=== PATIENT | male | born 1960 | race African-American/Black ===

== ENCOUNTER 2020-10-30 08:50 | Emergency (ER) | payer MEDICARE ==
[~2020-10-30] VITALS: Ht 172.7 cm; Wt 105.1 kg
[2020-10-30] MEDS ORDERED: ONDANSETRON PF 4 MG/2 ML VIAL. IVP ONE (09:15)
[2020-10-30] MEDS ORDERED: diphenhydrAMINE 50 MG/ML VIAL IVP ONE (09:15)
[2020-10-30] MEDS ORDERED: HYDROmorphone PF 1 MG/ML DISP.SYRIN IVP ONE ×2 (09:15→11:30)
--- NOTE | 2020-10-30 09:18 | PHYS DOC ---
General Adult EDM: Chief Complaint: LOWER EXTREMITY SWELLING HPI: HPI: 59-year-old male presents with right lower extremity swelling and pain. The patient has sickle cell. He normally is managed well at home. He does not use narcotics at home. For the last 2 days, the patient has had increased swelling in the right leg and generalized pain more in that leg than the left. The pain is similar to his previous crisis, but he has never had the unilateral swelling of the leg. He denies change in sensation. He is not having any abdominal or chest pain. He has an allergy to codeine and morphine that makes him itch. He has no other complaints at this time. Review of Systems: Review of Systems: Constitutional: Denies fever or chills Eyes: Denies change in visual acuity HENT: Denies nasal congestion or sore throat Respiratory: Denies cough or shortness of breath Cardiovascular: Denies chest pain or edema GI: Denies abdominal pain, nausea, vomiting, bloody stools or diarrhea : Denies dysuria Musculoskeletal: Right lower extremity pain and swelling Integument: Denies rash Neurologic: Denies headache, focal weakness or sensory changes Endocrine: Denies polyuria or polydipsia Lymphatic: Denies swollen glands Psychiatric: Denies depression or anxiety Allergies: Allergies: Allergies Coded Allergies Type Severity Reaction Last Updated Verified acetaminophen Allergy Unknown 10/30/20 Yes hydrocodone Allergy Unknown 10/30/20 Yes morphine Allergy Unknown 10/30/20 Yes Uncoded Allergies Type Severity Reaction Last Updated Verified CODINE Allergy Unknown 10/30/20 Physical Exam: PE: Constitutional: Well developed, well nourished, no acute distress, non-toxic appearance. [] HENT: Normocephalic, atraumatic, bilateral external ears normal, oropharynx moist, no oral exudates, nose normal. [] Eyes: PERRLA, EOMI, conjunctiva normal, no discharge. [] Neck: Normal range of motion, no tenderness, supple, no stridor. [] Cardiovascular: Heart rate regular rhythm, no murmur [] Lungs & Thorax: Bilateral breath sounds clear to auscultation [] Abdomen: Bowel sounds normal, soft, no tenderness, no masses, no pulsatile masses. [] Skin: Warm, dry, no erythema, no rash. [] Back: No tenderness, no CVA tenderness. [] Extremities: No tenderness, no cyanosis, no clubbing, ROM intact. Right lower leg swollen compared to left without pitting edema. [] Neurologic: Alert and oriented X 3, normal motor function, normal sensory fu nction, no focal deficits noted. [] Psychologic: Affect normal, judgement normal, mood normal. [] EKG: EKG: [] Radiology/Procedures: Radiology/Procedures: [] Impressions: Right lower extremity venous Doppler dated 10/30/2020 11:35 AM COMPARISON: none. CLINICAL INDICATION: Leg swelling Reason: swelling, sickle cell / Spl. Instructions: / History: FINDINGS: Grayscale, color-flow and spectral waveform analysis performed to include the deep venous system of right lower extremity. There is normal compressibility, phasicity and augmentation of flow throughout. No filling defects are seen. IMPRESSION: No evidence of right lower extremity deep vein thrombosis. Electronically signed by: Jose R Alcantara MD (10/30/2020 11:35 AM) [id number] DICTATED AND SIGNED BY: JOSE R ALCANTARA MD DATE: 10/30/20 1135 CC: RORY GOMEZ DO; CARY POWERS MD ~MTH0 0 Heart Score: C/O Chest Pain: N/A Risk Factors: Risk Factors: DM, Current or recent (<one month) smoker, HTN, HLP, family history of CAD, obesity. Risk Scores: Score 0 - 3: 2.5% MACE over next 6 weeks - Discharge Home Score 4 - 6: 20.3% MACE over next 6 weeks - Admit for Clinical Observation Score 7 - 10: 72.7% MACE over next 6 weeks - Early Invasive Strategies Course & Med Decision Making: Course & Med Decision Making Pertinent Labs and Imaging studies reviewed. (See chart for details) For his pain, I have given the patient two 1 mg doses of Dilaudid. He did not need the second dose until after his ultrasound. His ultrasound is negative for DVT. His labs are abnormal with a hemoglobin of 8.3, hematocrit 23, MCV 132. See labs for more details. Patient states that he is feeling better. He does not usually get admitted for his sickle cell. He is unsure what his typical hemoglobin is. He would like to try to go home. I will discharge him with Percocet. I did warn the patient that his hemoglobin could continue to drop and that if he develops symptoms such as dizziness, shortness of breath, syncope that he would need to come back to the hospital. He states verbal understanding. He is stable for discharge at this time. [] Arnie Disclaimer: Arnie Disclaimer: This electronic medical record was generated, in whole or in part, using a voice recognition dictation system. Departure Departure: Impression: Primary Impression: Sickle cell anemia with pain Disposition: HOME / SELF CARE / HOMELESS Condition: STABLE Referrals: CARY POWERS MD (PCP) Patient Instructions: Sickle Cell Pain Crisis, Sids-di-Apxj Scripts Oxycodone HCl/Acetaminophen (Percocet 5-325 mg Tablet) 1 Each Tablet 1 TAB PO PRN QID PRN for PAIN MDD 4 Tablet(s) for 5 Days, #20 TAB 0 Refills Prov: RORY GOMEZ DO 10/30/20 RORY GOMEZ DO Oct 30, 2020 09:18
[2020-10-30] MEDS ORDERED: IV NORMAL SALINE 1,000ML 1,000 ML IV ONE (09:30)
[2020-10-30 10:08] LABS: BASO % 0 % (0-3); EOS # 0.1 x10^3/uL (0.0-0.7); EOS % 3 % (0-3); HEMATOCRIT 23.8 % (39.0-53.0); HEMOGLOBIN 8.3 g/dL (13.0-17.5); LYMPH # 1.5 x10^3/uL (1.0-4.8); LYMPH % 41 % (24-48); MEAN CORPUSCULAR HEMOGLOBIN 46 pg (25-35); MEAN CORPUSCULAR HGB CONC 35 g/dL (31-37); MEAN CORPUSCULAR VOLUME 132 fL (79-100); MONO # 0.3 x10^3/uL (0.0-1.1); MONO % 8 % (0-9); NEUT # 1.8 x10^3uL (1.8-7.7); NEUT % 49 % (31-73); PLATELET COUNT 396 x10^3/uL (140-400); RED BLOOD COUNT 1.81 x10^6/uL (4.30-5.70); RED CELL DISTRIBUTION WIDTH 17.3 % (11.5-14.5); WHITE BLOOD COUNT 3.7 x10^3/uL (4.0-11.0)
[2020-10-30 10:20] LABS: CALCIUM 8.2 mg/dL (8.5-10.1); CREATININE 1.2 mg/dL (0.7-1.3); GFR 75.5; POTASSIUM 4.1 mmol/L (3.5-5.1)
[2020-10-30 10:22] LABS: ALBUMIN 3.6 g/dL (3.4-5.0); ALBUMIN/GLOBULIN RATIO 0.9 (1.0-1.7); TOTAL BILIRUBIN 0.4 mg/dL (0.2-1.0); TOTAL PROTEIN 7.4 g/dL (6.4-8.2)
--- NOTE | 2020-10-30 11:38 | RAD ---
Right lower extremity venous Doppler dated 10/30/2020 11:35 AM COMPARISON: none. CLINICAL INDICATION: Leg swelling Reason: swelling, sickle cell / Spl. Instructions: / History: FINDINGS: Grayscale, color-flow and spectral waveform analysis performed to include the deep venous system of r ight lower extremity. There is normal compressibility, phasicity and augmentation of flow throughout. No filling defects are seen. IMPRESSION: No evidence of right lower extremity deep vein thrombosis. Electronically signed by: Jose R Alcantara MD (10/30/2020 11:35 AM) [id number]
[2020-10-30 11:58] VITALS: BP 149/90
[2020-10-30 12:00] LABS: % EOS 1 % (0-5); % LYMPHS 52 % (24-48); % MONOS 6 % (0-10); % SEGS 41 % (35-66); NUCLEATED RBC 50
[2020-10-30 12:03] LABS: PLT ESTIMATE ADEQUATE (ADEQUATE); POLYCHROMASIA SLIGHT
[2020-10-30 12:04] LABS: ANISOCYTOSIS SLIGHT; POIKILOCYTOSIS PRESENT
[2020-10-30] MEDS ORDERED: OXYC-325 PO (12:18)
== END 2020-10-30 12:27 | disposition home or self-care (01) ==
LOC: ER 08:50
DX: D57.00 Hb-SS disease with crisis, unspecified (principal); M79.604 Pain in right leg; R22.41 Localized swelling, mass and lump, right lower limb; Z88.5 Allergy status to narcotic agent; Z88.8 Allergy status to other drugs, medicaments and biological substances
CPT/HCPCS: 36415; 80053; 85007; 85025; 93971; 96361; 96374; 96375; 99284; J1170; J1200; J2405; J7030

== ENCOUNTER 2020-11-01 14:54 | Emergency (ER) | payer MEDICARE ==
[~2020-11-01] VITALS: Ht 172.7 cm; Wt 105.1 kg
[~2020-11-01 14:54] MED LIST: OXYC-325 PO
[2020-11-01 15:20] LABS: BASO % 0 % (0-3); EOS # 0.1 x10^3/uL (0.0-0.7); EOS % 2 % (0-3); HEMATOCRIT 23.6 % (39.0-53.0); HEMOGLOBIN 8.3 g/dL (13.0-17.5); LYMPH # 1.3 x10^3/uL (1.0-4.8); LYMPH % 33 % (24-48); MEAN CORPUSCULAR HEMOGLOBIN 46 pg (25-35); MEAN CORPUSCULAR HGB CONC 35 g/dL (31-37); MEAN CORPUSCULAR VOLUME 132 fL (79-100); MONO # 0.3 x10^3/uL (0.0-1.1); MONO % 9 % (0-9); NEUT # 2.2 x10^3uL (1.8-7.7); NEUT % 56 % (31-73); PLATELET COUNT 337 x10^3/uL (140-400); RED BLOOD COUNT 1.78 x10^6/uL (4.30-5.70); RED CELL DISTRIBUTION WIDTH 17.7 % (11.5-14.5); WHITE BLOOD COUNT 3.9 x10^3/uL (4.0-11.0)
[2020-11-01 15:26] LABS: CALCIUM 9.2 mg/dL (8.5-10.1); CREATININE 1.2 mg/dL (0.7-1.3); GFR 75.5; POTASSIUM 3.9 mmol/L (3.5-5.1)
--- NOTE | 2020-11-01 15:29 | PHYS DOC ---
Past History Additional Past Medical Histor: sickle cell Past Surgical History: No Surgical History Alcohol Use: None General Adult EDM: Chief Complaint: UPPER EXTREMITY PAIN HPI: HPI: Patient is a 59-year-old male who presents to the ER today from Dr. Abelardo Lipscomb's office who is his primary care provider. Patient was sent to rule out bone infarcts. Patient is complaining of swelling to his right arm and right leg with increased pain. Patient was seen in this ER 2 days prior for same complaint. He had blood work and an ultrasound performed of his right leg. He was negative for DVT at that time and was discharged home with Percocet for pain control. Patient rates pain 10 out of 10 and has not taken anything at home for pain, he describes the pain as a constant pain and it radiates up his entire leg and his entire arm. He reports being able to bear weight and ambulate with the assistance of a cane. Patient denies shortness of breath, chest pain, fevers, dizziness, abdominal pain. Review of Systems: Review of Systems: 14 body systems of the review of systems have been reviewed. See HPI for pertinent positive and negative responses, otherwise all other systems are negative, nonpertinent or noncontributory Current Medications: Current Meds: Current Medications Medications (Trade) Dose Ordered Sig/Magdalena Start Time Stop Time Status Last Admin Dose Admin Hydromorphone HCl (Dilaudid) 1 mg 1X ONCE 11/01/20 15:15 11/01/20 15:16 UNV Ondansetron HCl (Zofran) 4 mg 1X ONCE 11/01/20 15:15 11/01/20 15:16 UNV Allergies: Allergies: Allergies Coded Allergies Type Severity Reaction Last Updated Verified codeine Allergy Intermediate 10/30/20 Yes acetaminophen Allergy Unknown 10/30/20 Yes hydrocodone Allergy Unknown 10/30/20 Yes morphine Allergy Unknown 10/30/20 Yes Physical Exam: PE: Constitutional: Well developed, well nourished, no acute distress, non-toxic appearance. [] HENT: Normocephalic, atraumatic, bilateral external ears normal, oropharynx moist, no oral exudates, nose normal. [] Eyes: PERRL, EOMI, conjunctiva normal, no discharge. [] Neck: Normal range of motion, no tenderness, supple, no stridor. [] Cardiovascular:Heart rate regular rhythm, no murmur [] Lungs & Thorax: Bilateral breath sounds clear to auscultation [] Abdomen: Bowel sounds normal, soft, no tenderness, no masses, no pulsatile masses. [] Skin: Warm, dry, no erythema, no rash. [] Extremities: No tenderness, no cyanosis, no clubbing, ROM intact. Patient has 2+ edema to his right upper and lower extremities, pain with palpation of the right upper and lower extremity, range of motion intact, sensation intact, 2 + DP and PT pulses in the right lower extremity otherwise upper and lower extremities neurologically intact. [] Neurologic: Alert and oriented X 3, normal motor function, normal sensory function, no focal deficits noted. [] Psychologic: Affect normal, judgement normal, mood normal. []+ Current Patient Data: Labs: Laboratory Tests Test 11/01/20 14:50 White Blood Count 3.9 x10^3/uL Red Blood Count 1.78 x10^6/uL Hemoglobin 8.3 g/dL Hematocrit 23.6 % Mean Corpuscular Volume 132 fL Mean Corpuscular Hemoglobin 46 pg Mean Corpuscular Hemoglobin Concent 35 g/dL Red Cell Distribution Width 17.7 % Platelet Count 337 x10^3/uL Neutrophils (%) (Auto) 56 % Lymphocytes (%) (Auto) 33 % Monocytes (%) (Auto) 9 % Eosinophils (%) (Auto) 2 % Basophils (%) (Auto) 0 % Neutrophils # (Auto) 2.2 x10^3uL Lymphocytes # (Auto) 1.3 x10^3/uL Monocytes # (Auto) 0.3 x10^3/uL Eosinophils # (Auto) 0.1 x10^3/uL Basophils # (Auto) 0.0 x10^3/uL Platelet Estimate Pending Sodium Level 141 mmol/L Potassium Level 3.9 mmol/L Chloride Level 102 mmol/L Carbon Dioxide Level 28 mmol/L Anion Gap 11 Blood Urea Nitrogen 7 mg/dL Creatinine 1.2 mg/dL Estimated GFR (Cockcroft-Gault) 75.5 BUN/Creatinine Ratio 6 Glucose Level 367 mg/dL Calcium Level 9.2 mg/dL Total Bilirubin 0.7 mg/dL Aspartate Amino Transf (AST/SGOT) 33 U/L Alanine Aminotransferase (ALT/SGPT) 40 U/L Alkaline Phosphatase 91 U/L Troponin I Quantitative < 0.017 ng/mL Total Protein 7.4 g/dL Albumin 3.1 g/dL Albumin/Globulin Ratio 0.7 Current Medications Medications (Trade) Dose Ordered Sig/Magdalena Route PRN Reason Start Time Stop Time Status Last Admin Dose Admin Ondansetron HCl (Zofran) 4 mg 1X ONCE IVP 11/01/20 15:45 11/01/20 15:46 DC 11/01/20 15:28 Hydromorphone HCl (Dilaudid) 1 mg 1X ONCE IVP 11/01/20 15:45 11/01/20 15:46 DC 11/01/20 15:29 Vancomycin HCl 2 gm/Sodium Chloride 500 ml @ 250 mls/hr 1X ONCE IV 11/01/20 16:00 11/01/20 15:49 DC Vital Signs: Vital Signs Date Time Temp Pulse Resp B/P (MAP) Pulse Ox O2 Delivery O2 Flow Rate FiO2 11/01/20 15:03 98.7 59 16 149/90 98 Room Air EKG: EKG: EKG was performed at 1536 for hospital staff that shows sinus rhythm, no STEMI as read by Dr. Guevara at 1542. Radiology/Procedures: Radiology/Procedures: PROCEDURE: PORTABLE CHEST 1V Single AP view of the chest. Comparison: None. Indication: Sickle cell Findings: Presumed bone infarct of the right humeral head is identified. The heart is enlarged. There is no pneumothorax or effusion. Mild pulmonary vascular congestion. Impression: 1. Cardiomegaly with mild pulmonary vascular congestion. Electronically signed by: Melvin Aguilar MD (11/01/2020 3:46 PM) [facility] DICTATED AND SIGNED BY: MELVIN AGUILAR MD DATE: 11/01/20 1546 CC: BRENDAN HAMM APRN; CARY POWERS MD ~MTH0 0 PROCEDURE: TIBIA FIBULA RIGHT EXAM: AP and lateral views of the right tibia/fibula DATE: 11/01/2020 3:50 PM INDICATION: Reason: r/o bone infarct RIGHT LEG PAIN / Spl. Instructions: / History: . COMPARISON: No Prior FINDINGS/ IMPRESSION: 1. Heterogeneous sclerosis within the distal right tibia and proximal tibial metaphysis is seen. This is nonspecific but in the appropriate clinical scenario may represent medullary bone infarct. Sclerotic lesion in the calcaneus may also represent bone infarct. Further evaluation with MRI would provide additional details. 2. Soft tissue swelling about the right lower leg Electronically signed by: Jose Martin Sanchez MD (11/01/2020 4:57 PM) [facility] DICTATED AND SIGNED BY: JOSE MARTIN SANCHEZ MD DATE: 11/01/20 1654 CC: AMBROSIO KEBEDE DO; BRENDAN HAMM APRN; CARY POWERS MD ~MTH0 0 PROCEDURE: HUMERUS RIGHT Exam: Right humerus 2 views INDICATION: Bone infarct, right arm pain TECHNIQUE: Frontal, lateral views of the right humerus Comparisons: None FINDINGS: Serpiginous areas of sclerosis noted at the proximal right humerus. No acute or healed fractures. Joint spaces are well-maintained. IMPRESSION: Sclerotic serpiginous area within the proximal right humerus which could relate to bone infarct given history, chondroid lesion is not excluded. This is incompletely characterized on radiograph. Electronically signed by: Tapan Noe MD (11/01/2020 4:46 PM) [facility] DICTATED AND SIGNED BY: TAPAN NOE MD DATE: 11/01/20 1641 CC: AMBROSIO KEBEDE DO; BRENDAN HAMM APRN; CARY POWERS MD ~MTH0 0 PROCEDURE: RIGHT FEMUR XRAY EXAM: AP and lateral views of the right and femur DATE: 11/01/2020 3:50 PM INDICATION: Reason: r/o bone infarct RIGHT LEG PAIN / Spl. Instructions: / History: . COMPARISON: No Prior FINDINGS/ IMPRESSION: Heterogeneous sclerotic lesion within central lucency within the proximal right femoral neck/shaft as well as the distal tibial diametaphysis may represent medullary bone infarcts in the appropriate clinical scenario although other bone lesion cannot be excluded. If further imaging evaluation is clinically indicated, cross-sectional imaging would provide additional details. Electronically signed by: Jose Martin Sanchez MD (11/01/2020 4:29 PM) [facility] DICTATED AND SIGNED BY: JOSE MARTIN SANCHEZ MD DATE: 11/01/20 1627 CC: AMBROSIO KEBEDE DO; BRENDAN HAMM APRN; CARY POWERS MD ~MTH0 0 Heart Score: C/O Chest Pain: No Risk Factors: Risk Factors: DM, Current or recent (<one month) smoker, HTN, HLP, family history of CAD, obesity. Risk Scores: Score 0 - 3: 2.5% MACE over next 6 weeks - Discharge Home Score 4 - 6: 20.3% MACE over next 6 weeks - Admit for Clinical Observation Score 7 - 10: 72.7% MACE over next 6 weeks - Early Invasive Strategies Course & Med Decision Making: Course & Med Decision Making Pertinent Labs and Imaging studies reviewed. (See chart for details) Patient is a 59-year-old male who was sent by his primary care provider for edema and pain to right upper and lower extremity. Patient does have a history of sickle cell. Patient's work-up in the ER consisted of CBC, CMP, troponin, EKG, chest x-ray, and a send out reticulocyte count. Patient had x-rays of right upper and lower extremity to rule out bony infarct. Patient's pain was treated with Dilaudid and he was given nausea medication. Patient's CBC results are comparable to previous visit with a hemoglobin of 8.3, hematocrit of 23.6, wbc 3.6. Patient's CMP was mostly unremarkable, he did have a blood glucose of 367. Negative troponin and EKG negative for STEMI. His chest x-ray showed cardiomegaly with mild pulmonary vascular congestion. X-rays show bone infarcts in the right proximal humerus, right tibia, calcaneus, and right proximal femoral neck/shaft. I discussed patient's case with supervising physician. 1733: Upon reevaluation of patient he reports that he is still in pain after receiving Dilaudid in the ER. Patient was ordered another dose of Dilaudid for pain control. I discussed admitting patient to a hospital for sickle cell pain and he was agreeable. He reports that he was admitted in the past to [facility] for a bone infarct previously. I have contacted [facility] regarding potential transfer of patient. Unable to admit patient at [facility] due to to high volume status. Patient is agreeable to be transferred to [facility]. I have discussed with the patient all findings and diagnostic testing, clinical impression and plan. Patient voiced understanding and agreement. No further questions at this time. Have discussed patient's case and emergency department work-up with the hospitalist Dr. Espitia, who agreed that the patient's presentation and case warrants admission. Patient to be admitted under Dr. Espitia's care at [facility]. Arnie Disclaimer: Arnie Disclaimer: This electronic medical record was generated, in whole or in part, using a voice recognition dictation system. Departure Departure: Impression: Primary Impression: Sickle-cell disease with pain Additional Impression: Bone infarct Disposition: 02 SHORT TERM HOSPITAL Condition: GOOD Referrals: CARY POWERS MD (PCP) BRENDAN HAMM APRN Nov 01, 2020 15:29
[2020-11-01 15:33] LABS: ALBUMIN 3.1 g/dL (3.4-5.0); ALBUMIN/GLOBULIN RATIO 0.7 (1.0-1.7); TOTAL BILIRUBIN 0.7 mg/dL (0.2-1.0); TOTAL PROTEIN 7.4 g/dL (6.4-8.2)
[2020-11-01] MEDS ORDERED: HYDROmorphone PF 1 MG/ML DISP.SYRIN IVP ONE ×2 (15:45→18:00)
[2020-11-01] MEDS ORDERED: ONDANSETRON PF 4 MG/2 ML VIAL. IVP ONE (15:45)
--- NOTE | 2020-11-01 15:49 | RAD ---
Single AP view of the chest. Comparison: None. Indication: Sickle cell Findings: Presumed bone infarct of the right humeral head is identified. The heart is enlarged. There is no pn eumothorax or effusion. Mild pulmonary vascular congestion. Impression: 1. Cardiomegaly with mild pulmonary vascular congestion. Electronically signed by: Melvin Aguilar MD (11/01/2020 3:46 PM) [facility]
[2020-11-01] MEDS ORDERED: VANCOMYCIN 2 GM in IV NORMAL SALINE 500ML 500 ML IV ONE (16:00)
--- NOTE | 2020-11-01 16:32 | RAD ---
EXAM: AP and lateral views of the right and femur DATE: 11/01/2020 3:50 PM INDICATION: Reason: r/o bone infarct RIGHT LEG PAIN / Spl. Instructions: / History: . COMPARISON: No Prior FINDINGS/ IMPRESSION: Heterogeneous sclerotic lesion within central lucency within the proximal right femoral neck/shaft as well as the distal tibial diametaphysis may represent medullary bone infarcts in the appropriate cli nical scenario although other bone lesion cannot be excluded. If further imaging evaluation is clinic ally indicated, cross-sectional imaging would provide additional details. Electronically signed by: Jose Martin Lawson MD (11/01/2020 4:29 PM) [facility]
--- NOTE | 2020-11-01 16:40 | EKG ---
[address] [address] Test Date: 2020-11-01 Test Time: 15:36:54 Pat Name: EVER SYKES Department: Room: Gender: M Production Line Operator: : [id number] Requested By: BRENDAN HAMM Order Number: [id number] Reading MD: Measurements Intervals [place] Rate: 71 P: 51 [place]: 230 QRS: -26 QRSD: 102 T: 18 QT: 448 QTc: 492 Interpretive Statements SINUS RHYTHM PROLONGED [place] INTERVAL LEFTWARD AXIS R-S TRANSITION ZONE IN V LEADS DISPLACED TO THE RIGHT RVH WITH REPOLARIZATION ABNORMALITY PROLONGED QT ABNORMAL ECG RI6.02 No previous ECG available for comparison
--- NOTE | 2020-11-01 16:48 | RAD ---
Exam: Right humerus 2 views INDICATION: Bone infarct, right arm pain TECHNIQUE: Frontal, lateral views of the right humerus Comparisons: None FINDINGS: Serpiginous areas of sclerosis noted at the proximal right humerus. No acute or healed fractures. Shannan nt spaces are well-maintained. IMPRESSION: Sclerotic serpiginous area within the proximal right humerus which could relate to bone infarct given history, chondroid lesion is not excluded. This is incompletely characterized on radiograph. Electronically signed by: Tapan Rubio MD (11/01/2020 4:46 PM) [facility]
--- NOTE | 2020-11-01 16:59 | RAD ---
EXAM: AP and lateral views of the right tibia/fibula DATE: 11/01/2020 3:50 PM INDICATION: Reason: r/o bone infarct RIGHT LEG PAIN / Spl. Instructions: / History: . COMPARISON: No Prior FINDINGS/ IMPRESSION: 1. Heterogeneous sclerosis within the distal right tibia and proximal tibial metaphysis is seen. Thi s is nonspecific but in the appropriate clinical scenario may represent medullary bone infarct. Scler otic lesion in the calcaneus may also represent bone infarct. Further evaluation with MRI would provi de additional details. 2. Soft tissue swelling about the right lower leg Electronically signed by: oJse Martin Lawson MD (11/01/2020 4:57 PM) [facility]
[2020-11-01] MEDS ORDERED: HYDROmorphone PF 1 MG/ML DISP.SYRIN IV PRN (18:15)
[2020-11-01] MEDS ORDERED: ONDANSETRON PF 4 MG/2 ML VIAL. IVP PRN (18:15)
[2020-11-01 18:59] LABS: % ATYL 1 % (0-0); % BANDS 1 % (0-9); % BASOS 1 % (0-3); % EOS 2 % (0-5); % LYMPHS 42 % (24-48); % MONOS 2 % (0-10); % SEGS 51 % (35-66); NUCLEATED RBC 59
[2020-11-01 19:01] LABS: ANISOCYTOSIS SLIGHT; PLT ESTIMATE ADEQUATE (ADEQUATE); POIKILOCYTOSIS PRESENT
[2020-11-01 19:02] VITALS: BP 122/76
== END 2020-11-01 19:32 | disposition short-term general hospital (02) ==
LOC: ER 14:54
DX: D57.00 Hb-SS disease with crisis, unspecified (principal); M87.874 Other osteonecrosis, right foot; Z88.5 Allergy status to narcotic agent; Z88.8 Allergy status to other drugs, medicaments and biological substances
CPT/HCPCS: 36415; 71045; 73060; 73552; 73590; 80053; 84484; 85007; 85025; 85045; 93005; 96374; 96375; 96376; 99285; J1170; J2405

== ENCOUNTER 2021-01-06 07:46 | Emergency (ER) | payer MEDICARE ==
[~2021-01-06] VITALS: Ht 172.7 cm; Wt 105.1 kg
--- NOTE | 2021-01-06 08:33 | PHYS DOC ---
Past History Additional Past Medical Histor: sickle cell Past Surgical History: No Surgical History Alcohol Use: None General Adult EDM: Chief Complaint: BLOOD IN URINE HPI: HPI: 60 yo M PMH CVA (x3 w/right hand deficit), vessel disease and hypertension, presents the ED with complaints of burning with urination and blood in his urine for the past 2 days. Patient reports he is not sexually active. No associated fever, flank pain, nausea or vomiting. Also reports he has a bruise on his right upper outer thigh, is unsure how this happened. Denies any blunt trauma or falls. No history of bleeding disorders or blood transfusion. Review of Systems: Review of Systems: Constitutional: Denies fever or chills Eyes: Denies change in visual acuity HENT: Denies nasal congestion or sore throat Respiratory: Denies cough or shortness of breath Cardiovascular: Denies chest pain or edema GI: Denies nausea, vomiting, bloody stools or diarrhea : Denies saddle anesthesia, incontinence or urethral discharge Musculoskeletal: Denies back pain or joint pain Integument: Denies rash or diaphoresis Neurologic: Denies headache, focal weakness or sensory changes Endocrine: Denies polyuria or polydipsia Lymphatic: Denies swollen glands Psychiatric: Denies depression or anxiety Allergies: Allergies: Allergies Coded Allergies Type Severity Reaction Last Updated Verified codeine Allergy Intermediate itching 01/06/21 Yes acetaminophen Allergy Unknown itching 01/06/21 Yes hydrocodone Allergy Unknown 10/30/20 Yes morphine Allergy Unknown 10/30/20 Yes Physical Exam: PE: Constitutional: Well developed, well nourished, no acute distress, non-toxic appearance. HENT: Normocephalic, atraumatic, Eyes: EOMI, conjunctiva normal, no discharge. Neck: Normal range of motion, supple, Cardiovascular: S1/2 present, regular rhythm Lungs & Thorax: Speaking in full sentences, bilateral equal chest rise, no tachypnea or increased work of breathing Abdomen: soft, no tenderness, Skin: Warm, dry, no erythema, no rash. [] Extremities:no cyanosis, no lower extremity edema, [id number] cm tender bruise over upper outer proximal left thigh with underlying swelling, no hip ttp Neurologic: Alert and oriented X 3, normal motor function, normal sensory function, no focal deficits noted. [] Psychologic: Affect normal, judgement normal, mood normal. [] Current Patient Data: Vital Signs: Vital Signs Date Time Temp Pulse Resp B/P (MAP) Pulse Ox O2 Delivery O2 Flow Rate FiO2 01/06/21 07:56 98.6 63 20 155/94 (114) 97 Room Air EKG: EKG: [] Radiology/Procedures: Radiology/Procedures: IMAGING REPORT Signed PATIENT: EVER SYKES ACCOUNT: [id number] : 1960 LOCATION: ER AGE: 60 SEX: M EXAM STATUS: REG ER ORD. PHYSICIAN: KOBE VASQUEZ DO REASON: paiand bruise upper thigh PROCEDURE: RIGHT FEMUR XRAY XR FEMUR_RIGHT dated 01/06/2021 8:30 AM. History: Reason: pain and bruise upper thigh / Spl. Instructions: / History: Comparison: Study of 11/01/2020. Findings: No fracture or dislocation is seen. There is no apparent foreign body. There continue to be areas of mixed sclerosis and lucency at the proximal and distal femur. There is no evidence of cortical destruction. Impression: 1. No acute findings. Stable appearance of nonaggressive appearing bone lesions. Electronically signed by: Petros Lowe Jr., MD (01/06/2021 8:52 AM) [id number] DICTATED AND SIGNED BY: PETROS LOWE Jr, MD DATE: 01/06/21 0850 CC: CARY POWERS MD; KOBE VASQUEZ DO ~MTH0 0 Heart Score: C/O Chest Pain: No Risk Factors: Risk Factors: DM, Current or recent (<one month) smoker, HTN, HLP, family history of CAD, obesity. Risk Scores: Score 0 - 3: 2.5% MACE over next 6 weeks - Discharge Home Score 4 - 6: 20.3% MACE over next 6 weeks - Admit for Clinical Observation Score 7 - 10: 72.7% MACE over next 6 weeks - Early Invasive Strategies Course & Med Decision Making: Course & Med Decision Making Pertinent Labs and Imaging studies reviewed. (See chart for details) Pt presents to the ed with UTI symptoms and a right thigh contusion. Pt had medical decision making capacity. Patient is unable to be found in the emergency department, waiting room or parking lot. Patient eloped from emergency department without notifying any medical staff. Rx sent to pharmacy. Pt was not medically cleared. Life-threatening processes were considered. Life/limb- threatening differential includes but is not limited to, trauma, infection, nephrolithiasis, kidney disease, malignancy, obstructive uropathy, BPH, AAA/AVF/aortic dissection, or schistosomiasis. Dragon Disclaimer: Dragon Disclaimer: This electronic medical record was generated, in whole or in part, using a voice recognition dictation system. Departure Departure: Impression: Primary Impression: Dysuria Additional Impressions: Contusion of thigh, left Hematuria Eloped from emergency department Disposition: 07 LEFT AWOL/ELOPED Condition: STABLE Referrals: CARY POWERS MD (PCP) Follow-up with your primary care physician in 24 to 48 hours OR FOLLOW UP WITH FAMILY [facility]: [address], [address] [place] [address] Patient Instructions: Contusion, Urinary Tract Infection Scripts Cefpodoxime Proxetil (CEFPODOXIME PROXETIL) 200 Mg Tablet 1 TAB PO BID for uti, #20 TAB Prov: KOBE VASQUEZ DO 01/06/21 KOBE VASQUEZ DO Jan 06, 2021 08:33
--- NOTE | 2021-01-06 08:54 | RAD ---
XR FEMUR_RIGHT dated 01/06/2021 8:30 AM. History: Reason: pain and bruise upper thigh / Spl. Instructions: / History: Comparison: Study of 11/01/2020. Findings: No fracture or dislocation is seen. There is no apparent foreign body. There continue to be areas of mixed sclerosis and lucency at the proximal and distal femur. There is no evidence of cortical destru ction. Impression: 1. No acute findings. Stable appearance of nonaggressive appearing bone lesions. Electronically signed by: Timo Lowe Jr., MD (01/06/2021 8:52 AM) [id number]
[2021-01-06 09:38] LABS: COLOR,URINE RED
[2021-01-06 09:39] LABS: CLARITY,URINE BLOODY; RBC,URINE TNTC /HPF (0-2); WBC,URINE OCC /HPF (0-4)
[2021-01-06 09:40] LABS: BACTERIA,URINE FEW /HPF (0-FEW); SQUAMOUS EPITHELIAL CELL,UR OCC /LPF
[2021-01-06 09:50] VITALS: BP 124/72
[2021-01-06] MEDS ORDERED: CEFP200T PO (11:03)
== END 2021-01-06 09:50 | disposition home or self-care (01) ==
LOC: ER 07:46
DX: S70.12XA Contusion of left thigh, initial encounter (principal); R30.0 Dysuria; R31.9 Hematuria, unspecified; Z88.5 Allergy status to narcotic agent; Z88.8 Allergy status to other drugs, medicaments and biological substances; X58.XXXA Exposure to other specified factors, initial encounter; Y93.89 Activity, other specified; Y92.89 Other specified places as the place of occurrence of the external cause; Y99.8 Other external cause status
CPT/HCPCS: 73552; 81001; 99284